=== PATIENT | female | born 1965 | race Caucasian/White ===

== ENCOUNTER → 2018-06-05 | Outpatient (CLI) | payer BC ==
--- NOTE | 2018-06-05 09:04 | US ---
EXAMINATION TYPE: US abdomen complete DATE OF EXAM: 06/05/2018 COMPARISON: NONE CLINICAL HISTORY: R10.9 Unspecified abdominal pain. RUQ pain for 2 months EXAM MEASUREMENTS: Liver Length: 14.5 cm Gallbladder Wall: 0.3 cm CBD: 0.3 cm Spleen: 9.9 cm Right Kidney: 11.4 x 3.6 x 3.7 cm Left Kidney: 10.8 x 4.9 x 4.2 cm Pancreas: Obscured by bowel gas Liver: Solitary hypoechoic hepatic lesion is seen within the right lobe measuring 2.2 x 2.2 x 2.0cm . There is peripheral vascular flow. Gallbladder: no evidence of stones Evidence for sonographic Fitzgerald's sign: no CBD: wnl Spleen: wnl Right Kidney: no evidence of hydronephrosis Left Kidney: no evidence of hydronephrosis Upper IVC: wnl Abd Aorta: wnl The intrahepatic portion of the IVC and proximal abdominal aorta are within normal limits. There is no evidence of cholelithiasis. Common bile duct is unremarkable. The visualized portions of the loredo creas are homogenous. The spleen is unremarkable. Kidneys are symmetric and free of hydronephrosis. No renal lesions are seen. IMPRESSION: Solitary hypoechoic hepatic lesion, incompletely characterized on this exam. Further eval uation with three-phase enhanced CT abdomen is recommended.
== END | disposition home or self-care (01) ==
LOC: RADUSWWP 07:33
PROVIDERS: ATTEND Family Medicine
DX: K76.89 Other specified diseases of liver (principal)
CPT/HCPCS: 76700

== ENCOUNTER → 2018-06-10 | Outpatient (CLI) | payer BC ==
--- NOTE | 2018-06-11 08:09 | CT ---
EXAMINATION TYPE: CT abdomen wo/w con DATE OF EXAM: 06/10/2018 COMPARISON: Ultrasound 06/05/2018 HISTORY: Abnormal US. CT DLP: 1500.3 mGycm CONTRAST: CT scan of the abdomen is performed with Oral Contrast and without and with IV Contrast, patient inj ected with 100 mL of Isovue M300. FINDINGS: LUNG BASES-: No visible nodule. No infiltrate. LIVER/GB: No calcified gallstones. Hyperattenuating lesion medial aspect right hepatic lobe measuri ng 2.6 x 1.8 cm which does fill in on delayed images and is felt to reflect hemangioma. No additional hepatic lesions identified at this time. Biliary tree is of normal caliber. PANCREAS: No inflammation. No distinct mass. SPLEEN: No splenic enlargement. No lesion seen. ADRENALS: No nodule. No thickening. KIDNEYS/BLADDER: No hydronephrosis. No nephrolithiasis. No distinct renal mass. Urinary bladder g rossly unremarkable. BOWEL: Normal appendix. Normal bowel caliber. No inflammation. LYMPH NODES: No greater than 1cm abdominal or pelvic lymph nodes are appreciated. AORTA: No significant abnormality. OSSEOUS STRUCTURES: No significant abnormality is seen. OTHER: No significant additional abnormality is seen. IMPRESSION: 1. Findings felt to reflect hepatic hemangioma.
== END | disposition home or self-care (01) ==
LOC: RADCTMAIN 16:22
PROVIDERS: ATTEND Family Medicine
DX: K76.9 Liver disease, unspecified (principal)
CPT/HCPCS: 74170; Q9967

== ENCOUNTER → 2018-08-04 | Outpatient (CLI) | payer BC ==
[2018-08-05 03:03] LABS: Rheumatoid Factor 7 IU/mL (0-15)
== END | disposition home or self-care (01) ==
LOC: LABWHC1 15:27
PROVIDERS: ATTEND Physician Assistant Medical
DX: M12.9 Arthropathy, unspecified (principal)
CPT/HCPCS: 36415; 85652; 86038; 86431

== ENCOUNTER 2018-09-01 08:50 | Day surgery (SDC) | payer BC ==
[2018-08-27 15:00] VITALS: BMI 30.5
[~2018-09-01 08:50] MED LIST: LACTATED RINGERS 1,000 ML IV SCH; LIDOCAINE 1% 20 ML VIAL (10MG/ML) FOR IV START INTRADERMA PRN
[2018-09-01 11:45] VITALS: RESP 18; TEMP 97.8
[2018-09-01] MEDS ORDERED: LACTATED RINGERS 1,000 ML IV ONE (11:45)
[2018-09-01] MEDS ORDERED: LIDOCAINE 1% INJ 10MG/ML (20 ML MDV) ONE (12:52)
[2018-09-01] MEDS ORDERED: MIDAZOLAM 2 MG/2 ML VIAL ONE (12:52)
[2018-09-01] MEDS ORDERED: PROPOFOL 10 MG/ML 20 ML VIAL IV ONE (12:52)
[2018-09-01] MEDS ORDERED: GLYCOPYRROLATE 0.2 MG/ML 2 ML VIAL ONE (12:52)
--- NOTE | 2018-09-01 13:39 | P.PCN ---
Date of Procedure: 09/01/18 Procedure(s) Performed: Procedure: 1. Esophagogastroduodenoscopy and biopsy. 2. Total colonoscopy. Preoperative diagnosis: Iron deficiency anemia. Postoperative diagnosis: 1. Small sliding hiatal hernia with no obvious esophagitis or complicated reflux disease. 2. Mild antral gastritis. 3. Normal colonoscopy. 4. Multiple biopsies obtained from the duodenum, antrum and esophagus. Preparation: HalfLytely prep. Sedation: Was provided by anesthesia. Brief clinical history: The patient is a 52-year-old female who was diagnosed with celiac disease around 2009. The patient has done well on a gluten-free diet until around 6 months ago. She been having bloating, indigestion as well as nocturnal reflux and intermittent diarrhea. In addition she is having iron deficiency anemia. Procedure: With the patient on her left lateral decubitus position and after informed consent and adequate sedation, I passed the Olympus-GIF 190 video upper endoscope through the cricopharyngeus down the esophagus. GE junction was around 34 cm from the incisors and there was a small sliding hiatal hernia but no obvious esophagitis or complicated reflux disease. The endoscope was then passed into the stomach which was insufflated with air and inspected in detail including the retroflex view in the cardia. There was some mottling and erythema in the antrum but no ulcers or erosions. Pyloric channel, duodenal bulb, post bulbar area and descending duodenum appeared within normal limits. Because of her symptoms, I obtained biopsies from the duodenum, antrum and esophagus then the endoscope was withdrawn and I proceeded with the colonoscopy. Perianal area did not show any fissures or fistulas. There were no masses felt on digital rectal examination. The Olympus CFH 190L video colonoscope was then inserted in the rectum in the usual fashion and advanced to the cecum. The mucosa appeared healthy. No polyps or tumors were seen or any obvious diverticular disease or any potential source of bleeding. I retroflexed the endoscope in the rectum before the endoscope was withdrawn. The patient tolerated the procedure well. Plan: The patient was reassured. Will await biopsy results and make further plans. I will keep you updated on her progress.
[2018-09-01 13:51] VITALS: BP 116/76; PULSE 91
== END 2018-09-01 13:34 | disposition home or self-care (01) ==
LOC: ORWHC2ENDO 08:50
DX: D50.9 Iron deficiency anemia, unspecified (principal); K44.9 Diaphragmatic hernia without obstruction or gangrene; K22.8 Other specified diseases of esophagus; K29.50 Unspecified chronic gastritis without bleeding; K90.0 Celiac disease; J45.909 Unspecified asthma, uncomplicated; E07.9 Disorder of thyroid, unspecified; Q07.00 Arnold-Chiari syndrome without spina bifida or hydrocephalus; Z79.1 Long term (current) use of non-steroidal anti-inflammatories (NSAID); Z79.890 Hormone replacement therapy; Z79.899 Other long term (current) drug therapy
CPT/HCPCS: 81025; 88305; 45378; 43239; J2250; J2001; J2704

== ENCOUNTER 2018-12-11 22:16 | Emergency (ER) | payer BC ==
[2018-12-11] MEDS ORDERED: ONDANSETRON 4 MG/2 ML VIAL IVP STA (23:06)
[2018-12-11] MEDS ORDERED: SODIUM CHLORIDE 0.9% 500 ML 500 ML IV STA (23:06)
[2018-12-11 23:19] LABS: Basophils % (A) 0 %; Eosinophils % (A) 0 %; HCT 46.3 % (34.0-46.0); HGB 15.6 gm/dL (11.4-16.0); Lymphocytes # (A) 0.4 k/uL (1.0-4.8); Lymphocytes % (A) 5 %; MCH 29.1 pg (25.0-35.0); MCHC 33.8 g/dL (31.0-37.0); MCV 86.2 fL (80.0-100.0); Mean Platelet Volume 7.1; Monocytes # (A) 0.4 k/uL (0-1.0); Monocytes % (A) 5 %; Neutrophils # (A) 6.3 k/uL (1.3-7.7); Neutrophils % (A) 88 %; Platelet Count 288 k/uL (150-450); RBC 5.37 m/uL (3.80-5.40); RDW 14.7 % (11.5-15.5); WBC 7.2 k/uL (3.8-10.6)
[2018-12-11 23:20] LABS: Appearance,Urine Clear (Clear); Bilirubin,Urine Negative (Negative); Blood,Urine Negative (Negative); Color,Urine Yellow; Glucose,Urine (UA) Negative (Negative); Hyaline Casts,Urine 1 /lpf (0-2); Ketones,Urine 3+ (Negative); Leukocyte Esterase,Urine Small (Negative); Mucus,Urine Few /hpf; Nitrite,Urine Negative (Negative); PH, Urine 5.5 (5.0-8.0); Protein,Urine Trace (Negative); RBC,Urine 2 /hpf (0-5); Squamous Epithelial Cell,Urine 4 /hpf (0-4); Urobilinogen,Urine <2.0 mg/dL (<2.0); WBC,Urine 4 /hpf (0-5)
[2018-12-11 23:28] LABS: ALT 29 U/L (9-52); AST 20 U/L (14-36); Albumin 4.7 g/dL (3.5-5.0); Alkaline Phosphatase 78 U/L (38-126); Amylase 52 U/L (30-110); Anion Gap 11 mmol/L; Blood Urea Nitrogen 21 mg/dL (7-17); Calcium 9.6 mg/dL (8.4-10.2); Carbon Dioxide 21 mmol/L (22-30); Chloride 105 mmol/L (98-107); Glucose 108 mg/dL (74-99); Lipase 31 U/L (23-300); Potassium 3.8 mmol/L (3.5-5.1); Sodium 137 mmol/L (137-145); Total Bilirubin 0.7 mg/dL (0.2-1.3); Total Protein 8.1 g/dL (6.3-8.2)
[2018-12-11] MEDS ORDERED: SODIUM CHLORIDE 0.9% 1,000 ML IV ONE (23:29)
--- NOTE | 2018-12-11 23:36 | ED ---
Nausea/Vomiting/Diarrhea HPI - General Chief complaint: Nausea/Vomiting/Diarrhea Stated complaint: Nausea,diarrhea Time Seen by Provider: 12/11/18 23:02 Source: patient, family Mode of arrival: ambulatory Limitations: no limitations - History of Present Illness Initial comments: This patient is a 53-year-old woman who presents with complaint of not feeling well due to having multiple rounds of diarrhea. She states that her symptoms started around 5 AM. She has been having greater than 10 episodes watery diarrhea. She has not noted blood or dark tarry stool. The patient has had some associated nausea but no vomiting. There is no abdominal pain. Patient states she is started feels somewhat dehydrated. MD complaint: nausea, diarrhea Onset/Timin -: hour(s) Description of Diarrhea: water Associated Abdominal Pain: No Improves with: none Worsens with: none - Related Data Home Medications Medication Instructions Recorded Confirmed Diazepam [Valium] 5 mg PO HS PRN 08/27/18 12/11/18 Levothyroxine Sodium [Synthroid] 137 mcg PO HS 08/27/18 12/11/18 Montelukast [Singulair] 10 mg PO HS 08/27/18 12/11/18 Sertraline [Zoloft] 50 mg PO HS 08/27/18 12/11/18 Topiramate [Topamax] 25 mg PO HS 08/27/18 12/11/18 Acetaminophen Tab [Tylenol Tab] 500 mg PO Q6H PRN 12/11/18 12/11/18 Albuterol Nebulized [Ventolin 2.5 mg INHALATION RT-Q6H PRN 12/11/18 12/11/18 Nebulized] Lansoprazole 15 mg PO DAILY 12/11/18 12/11/18 Nausean Otc 1 tab PO DAILY PRN 12/11/18 12/11/18 Omalizumab [Xolair] 75 mg SQ Q30D 12/11/18 12/11/18 Previous Rx's Medication Instructions Recorded Ondansetron Odt [Zofran ODT] 4 mg PO Q8HR PRN #10 tab 12/12/18 Allergies Allergy/AdvReac Type Severity Reaction Status Date / Time No Known Allergies Allergy Verified 12/11/18 22:49 Review of Systems ROS Statement: Those systems with pertinent positive or pertinent negative responses have been documented in the HPI. ROS Other: All systems not noted in ROS Statement are negative. Constitutional: Denies: fever, chills Respiratory: Denies: cough, dyspnea Cardiovascular: Denies: chest pain, syncope Gastrointestinal: Reports: nausea, diarrhea. Denies: abdominal pain, vomiting, constipation, melena, hematochezia Genitourinary: Denies: dysuria Musculoskeletal: Denies: back pain Skin: Denies: rash Neurological: Denies: headache, weakness, numbness Past Medical History Past Medical History: Asthma, Thyroid Disorder Additional Past Medical History / Comment(s): ANEMIA. CELIAC. 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 CHIARI MALFORMATION SX WITH BOVINE PATCH. COLONOSCOPY AND EGD'S Past Anesthesia/Blood Transfusion Reactions: No Reported Reaction Past Psychological History: Anxiety, Depression Smoking Status: Never smoker Past Alcohol Use History: None Reported Past Drug Use History: None Reported - Past Family History Mother Family Medical History: No Reported History General Exam Limitations: no limitations General appearance: alert, in no apparent distress Head exam: Present: atraumatic, normocephalic Eye exam: Present: normal appearance. Absent: scleral icterus, conjunctival injection ENT exam: Present: mucous membranes dry Respiratory exam: Present: normal lung sounds bilaterally. Absent: respiratory distress, wheezes, rales, rhonchi, stridor Cardiovascular Exam: Present: normal rhythm, tachycardia (Rate approximately 116 at my exam), normal heart sounds. Absent: systolic murmur, diastolic murmur, rubs, gallop GI/Abdominal exam: Present: soft, normal bowel sounds. Absent: distended, tenderness, guarding, rebound, rigid, mass, pulsatile mass, hernia Extremities exam: Present: normal inspection, normal capillary refill. Absent: pedal edema, calf tenderness Neurological exam: Present: alert Skin exam: Present: warm, dry, intact, normal color. Absent: rash Course Vital Signs 12/11/18 12/12/18 12/12/18 22:36 00:50 01:10 Temperature 99.2 F Pulse Rate 130 H 100 Respiratory 20 19 Rate Blood Pressure 115/75 138/79 137/72 O2 Sat by Pulse 95 100 97 Oximetry 12/12/18 12/12/18 12/12/18 01:40 02:10 02:40 Temperature Pulse Rate 100 100 Respiratory 16 16 Rate Blood Pressure 130/74 117/68 120/69 O2 Sat by Pulse 97 95 98 Oximetry 12/12/18 03:10 Temperature Pulse Rate 100 Respiratory 16 Rate Blood Pressure 118/67 O2 Sat by Pulse 98 Oximetry Medical Decision Making - Lab Data Result diagrams: 12/11/18 22:47 12/11/18 22:47 Lab Results 12/11/18 12/11/18 12/11/18 Range/Units 22:47 22:47 22:47 WBC 7.2 (3.8-10.6) k/uL RBC 5.37 (3.80-5.40) m/uL Hgb 15.6 (11.4-16.0) gm/dL Hct 46.3 H (34.0-46.0) % MCV 86.2 (80.0-100.0) fL MCH 29.1 (25.0-35.0) pg MCHC 33.8 (31.0-37.0) g/dL RDW 14.7 (11.5-15.5) % Plt Count 288 (150-450) k/uL Neutrophils % 88 % Lymphocytes % 5 % Monocytes % 5 % Eosinophils % 0 % Basophils % 0 % Neutrophils # 6.3 (1.3-7.7) k/uL Lymphocytes # 0.4 L (1.0-4.8) k/uL Monocytes # 0.4 (0-1.0) k/uL Eosinophils # 0.0 (0-0.7) k/uL Basophils # 0.0 (0-0.2) k/uL Sodium 137 (137-145) mmol/L Potassium 3.8 (3.5-5.1) mmol/L Chloride 105 (98-107) mmol/L Carbon Dioxide 21 L (22-30) mmol/L Anion Gap 11 mmol/L BUN 21 H (7-17) mg/dL Creatinine 0.68 (0.52-1.04) mg/dL Est GFR (CKD-EPI)AfAm >90 (>60 ml/min/1.73 sqM) Est GFR (CKD-EPI)NonAf >90 (>60 ml/min/1.73 sqM) Glucose 108 H (74-99) mg/dL Calcium 9.6 (8.4-10.2) mg/dL Total Bilirubin 0.7 (0.2-1.3) mg/dL AST 20 (14-36) U/L ALT 29 (9-52) U/L Alkaline Phosphatase 78 (38-126) U/L Total Protein 8.1 (6.3-8.2) g/dL Albumin 4.7 (3.5-5.0) g/dL Amylase 52 (30-110) U/L Lipase 31 (23-300) U/L Urine Color Yellow Urine Appearance Clear (Clear) Urine pH 5.5 (5.0-8.0) Ur Specific [place] 1.030 (1.001-1.035) Urine Protein Trace H (Negative) Urine Glucose (UA) Negative (Negative) Urine Ketones 3+ H (Negative) Urine Blood Negative (Negative) Urine Nitrite Negative (Negative) Urine Bilirubin Negative (Negative) Urine Urobilinogen <2.0 (<2.0) mg/dL Ur Leukocyte Esterase Small H (Negative) Urine RBC 2 (0-5) /hpf Urine WBC 4 (0-5) /hpf Ur Squamous Epith Cells 4 (0-4) /hpf Hyaline Casts 1 (0-2) /lpf Urine Mucus Few H (None) /hpf Disposition Clinical Impression: Diarrhea Disposition: HOME SELF-CARE Condition: Good Instructions (If sedation given, give patient instructions): Acute Diarrhea (ED) Prescriptions: Ondansetron Odt [Zofran ODT] 4 mg PO Q8HR PRN #10 tab PRN Reason: Nausea Is patient prescribed a controlled substance at d/c from ED?: No Referrals: Karin Madrid DO [Primary Care Provider] - 1-2 days
[2018-12-12] MEDS ORDERED: MORPHINE SULFATE 4 MG/ML SYRINGE IV STA (00:34)
[2018-12-12] MEDS ORDERED: DEXTROSE 5%-0.45% NACL 1,000 ML IV ONE (00:35)
[2018-12-12 03:21] VITALS: PULSE 100
[2018-12-12] MEDS ORDERED: PROMETHAZINE INJ 25 MG in SODIUM CHLORIDE 0.9% 50 ML IVPB STA (04:22)
[2018-12-12 05:26] VITALS: BP 115/71; RESP 17; TEMP 98.1
== END 2018-12-12 05:14 | disposition home or self-care (01) ==
LOC: EC 22:16
DX: R19.7 Diarrhea, unspecified (principal); R00.0 Tachycardia, unspecified; R11.0 Nausea; J45.909 Unspecified asthma, uncomplicated; E07.9 Disorder of thyroid, unspecified; F32.9 Major depressive disorder, single episode, unspecified; F41.9 Anxiety disorder, unspecified; Z79.890 Hormone replacement therapy; Z79.899 Other long term (current) drug therapy; Z87.728 Personal history of other specified (corrected) congenital malformations of nervous system and sense organs; Z87.19 Personal history of other diseases of the digestive system
CPT/HCPCS: 99284; 96374; 96375 ×2; 96361 ×3; 36415; 80053; 82150; 83690; 85025; 81001; J2270; J2550; J2405

== ENCOUNTER → 2019-01-15 | Outpatient (CLI) | payer BC ==
--- NOTE | 2019-01-19 10:06 | MM ---
Reason for exam: screening (asymptomatic). Last mammogram was performed 1 year and 5 months ago. History: Family history of breast cancer in maternal grandmother, breast cancer in paternal grandmother, and breast cancer in maternal aunt. Physical Findings: A clinical breast exam by your physician is recommended on an annual basis and results should be correlated with mammographic findings. MG 3D Screening Mammo W/Cad Bilateral CC and MLO view(s) were taken. Prior study comparison: August 06, 2017, mammogram. The breast tissue is heterogeneously dense. This may lower the sensitivity of mammography. There are faint punctate bilateral calcifications. No suspicious abnormality. No significant changes when compared with prior studies. ASSESSMENT: Benign, BI-RAD 2 RECOMMENDATION: Routine screening mammogram of both breasts in 1 year.
== END | disposition home or self-care (01) ==
LOC: RADMAMWWP 15:25
PROVIDERS: ATTEND Family Medicine
DX: Z12.31 Encounter for screening mammogram for malignant neoplasm of breast (principal)
CPT/HCPCS: 77063; 77067

== ENCOUNTER → 2020-04-18 | Outpatient (CLI) | payer BC ==
--- NOTE | 2020-04-19 12:00 | MM ---
Reason for exam: screening (asymptomatic). Last mammogram was performed 1 year and 3 months ago. History: Family history of breast cancer in maternal grandmother, breast cancer in paternal grandmother, and breast cancer in maternal aunt. Physical Findings: A clinical breast exam by your physician is recommended on an annual basis and results should be correlated with mammographic findings. MG 3D Screening Mammo W/Cad Bilateral CC and MLO view(s) were taken. Prior study comparison: January 15, 2019, bilateral MG 3d screening mammo w/cad. August 06, 2017, mammogram. The breast tissue is heterogeneously dense. This may lower the sensitivity of mammography. No significant changes when compared with prior studies. ASSESSMENT: Benign, BI-RAD 2 RECOMMENDATION: Routine screening mammogram of both breasts in 1 year.
== END | disposition home or self-care (01) ==
LOC: RADMAMWWP 16:27
PROVIDERS: ATTEND Family Medicine
DX: Z12.31 Encounter for screening mammogram for malignant neoplasm of breast (principal)
CPT/HCPCS: 77063; 77067

== ENCOUNTER 2020-06-10 02:34 | Observation (INO) | payer BC ==
[2020-06-10] MEDS ORDERED: methylPREDNISolone SOD SUCCI 125 MG/2 ML VIAL IV STA (02:38)
[2020-06-10] MEDS ORDERED: SODIUM CHLORIDE 0.9% 1,000 ML IV STA ×3 (02:38→04:11)
[2020-06-10] MEDS ORDERED: IPRATROPIUM-ALBUTEROL 3 ML NEB INHALATION STA (02:38)
--- NOTE | 2020-06-10 03:02 | ED ---
SOB HPI - General Stated Complaint: SOB Source: patient, RN notes reviewed, old records reviewed Mode of arrival: ambulatory Limitations: no limitations - History of Present Illness Initial Comments: this is a 64-year-old female DF for evaluation no underlying history of asthma. Patient states she had use rescue inhaler twice today does not normal for had difficulty sleeping tonight she is appeared camping no known significant sick contacts patient does work in hospital.patient denying any chest pain or fevers but states her heart rate is elevated she feels significantly short of breath especially with exertion MD Complaint: shortness of breath, cough, "asthma attack", anxiety -: hour(s) Severity: moderate Severity scale (1-10): 7 Quality: aching Consistency: constant Improves With: rest, bronchodilators, medication Worsens With: exertion, movement Known History Of: asthma Context: recent URI Associated Symptoms: cough, sputum production, orthopnea, palpitations Treatments Prior to Arrival: none - Related Data Home Medications Medication Instructions Recorded Confirmed Levothyroxine Sodium [Synthroid] 137 mcg PO HS 08/27/18 12/11/18 Montelukast [Singulair] 10 mg PO HS 08/27/18 12/11/18 Sertraline [Zoloft] 50 mg PO HS 08/27/18 12/11/18 Topiramate [Topamax] 25 mg PO HS 08/27/18 12/11/18 diazePAM [Valium] 5 mg PO HS PRN 08/27/18 12/11/18 Acetaminophen Tab [Tylenol Tab] 500 mg PO Q6H PRN 12/11/18 12/11/18 Albuterol Nebulized [Ventolin 2.5 mg INHALATION RT-Q6H PRN 12/11/18 12/11/18 Nebulized] Lansoprazole 15 mg PO DAILY 12/11/18 12/11/18 Nausean Otc 1 tab PO DAILY PRN 12/11/18 12/11/18 Omalizumab [Xolair] 75 mg SQ Q30D 12/11/18 12/11/18 Previous Rx's Medication Instructions Recorded Ondansetron Odt [Zofran ODT] 4 mg PO Q8HR PRN #10 tab 12/12/18 Allergies Allergy/AdvReac Type Severity Reaction Status Date / Time No Known Allergies Allergy Verified 10/24/20 02:46 Review of Systems ROS Statement: Those systems with pertinent positive or pertinent negative responses have been documented in the HPI. ROS Other: All systems not noted in ROS Statement are negative. Past Medical History Past Medical History: Asthma, Thyroid Disorder Additional Past Medical History / Comment(s): ANEMIA. CELIAC. 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 CHIARI MALFORMATION SX WITH BOVINE PATCH. COLONOSCOPY AND EGD'S Past Anesthesia/Blood Transfusion Reactions: No Reported Reaction Past Psychological History: Anxiety, Depression Smoking Status: Never smoker Past Alcohol Use History: Rare Past Drug Use History: None Reported - Past Family History Mother Family Medical History: No Reported History General Exam Limitations: no limitations General appearance: alert, in no apparent distress, anxious Head exam: Present: atraumatic, normocephalic, normal inspection Eye exam: Present: normal appearance, PERRL, EOMI. Absent: scleral icterus, conjunctival injection, periorbital swelling ENT exam: Present: normal exam, mucous membranes moist Neck exam: Present: normal inspection. Absent: tenderness, meningismus, lymphadenopathy Respiratory exam: Present: respiratory distress, wheezes, accessory muscle use, decreased breath sounds, prolonged expiratory. Absent: rales, rhonchi, stridor Cardiovascular Exam: Present: normal rhythm, tachycardia, normal heart sounds. Absent: systolic murmur, diastolic murmur, rubs, gallop, clicks GI/Abdominal exam: Present: soft, normal bowel sounds. Absent: distended, tenderness, guarding, rebound, rigid Extremities exam: Present: normal inspection, full ROM, normal capillary refill. Absent: tenderness, pedal edema, joint swelling, calf tenderness Back exam: Present: normal inspection Neurological exam: Present: alert, oriented X3, CN II-XII intact Psychiatric exam: Present: normal affect, normal mood Skin exam: Present: warm, dry, intact, normal color. Absent: rash Course Vital Signs 06/10/20 06/10/20 06/10/20 02:40 03:09 03:18 Temperature 97.8 F Pulse Rate 117 H 117 H 120 H Respiratory 22 Rate Blood Pressure 164/90 O2 Sat by Pulse 99 Oximetry 06/10/20 06/10/20 04:16 05:20 Temperature Pulse Rate 117 H 110 H Respiratory 20 20 Rate Blood Pressure 138/75 111/68 O2 Sat by Pulse 97 97 Oximetry - Reevaluation(s) Reevaluation #1: 06/10/20 03:01 medical record is reviewed Reevaluation #2: 06/10/20 03:01 patient still sob, no sick contacts Reevaluation #3: 06/10/20 04:32 patient is increase in her jitteriness, medication reaction, tachycardia Reevaluation #4: 06/10/20 05:37 heart rate remains elevated sometime in the 140s here in the ER, spoke with patient regarding findings, per for observation Medical Decision Making - Medical Decision Making 52 female with new medication induced tachycardia and bronchospasm shortness of breath but here in the ER no acute cause found. Patient be admitted for cardiology to observe secondary to tachycardia - Lab Data Result diagrams: 06/10/20 03:03 06/10/20 03:02 Lab Results 06/10/20 06/10/20 06/10/20 Range/Units 03:02 03:03 03:03 WBC 5.8 (3.8-10.6) k/uL RBC 4.98 (3.80-5.40) m/uL Hgb 13.3 (11.4-16.0) gm/dL Hct 41.7 (34.0-46.0) % MCV 83.7 (80.0-100.0) fL MCH 26.7 (25.0-35.0) pg MCHC 31.9 (31.0-37.0) g/dL RDW 14.5 (11.5-15.5) % Plt Count 313 (150-450) k/uL Neutrophils % 56 % Lymphocytes % 28 % Monocytes % 8 % Eosinophils % 5 % Basophils % 1 % Neutrophils # 3.3 (1.3-7.7) k/uL Lymphocytes # 1.6 (1.0-4.8) k/uL Monocytes # 0.4 (0-1.0) k/uL Eosinophils # 0.3 (0-0.7) k/uL Basophils # 0.1 (0-0.2) k/uL PT 9.9 (9.0-12.0) sec INR 0.9 (<1.2) APTT 26.8 (22.0-30.0) sec Sodium 140 (137-145) mmol/L Potassium 3.6 (3.5-5.1) mmol/L Chloride 106 (98-107) mmol/L Carbon Dioxide 24 (22-30) mmol/L Anion Gap 10 mmol/L BUN 20 H (7-17) mg/dL Creatinine 0.81 (0.52-1.04) mg/dL Est GFR (CKD-EPI)AfAm >90 (>60 ml/min/1.73 sqM) Est GFR (CKD-EPI)NonAf 84 (>60 ml/min/1.73 sqM) Glucose 125 H (74-99) mg/dL Calcium 9.6 (8.4-10.2) mg/dL Magnesium 2.1 (1.6-2.3) mg/dL Total Bilirubin 0.3 (0.2-1.3) mg/dL AST 25 (14-36) U/L ALT 24 (4-34) U/L Alkaline Phosphatase 81 (38-126) U/L Lactate Dehydrogenase 338 (313-618) U/L Troponin I (0.000-0.034) ng/mL C-Reactive Protein 5.9 (<10.0) mg/L NT-Pro-B Natriuret Pep pg/mL Total Protein 7.4 (6.3-8.2) g/dL Albumin 4.3 (3.5-5.0) g/dL 06/10/20 06/10/20 Range/Units 03:03 03:03 WBC (3.8-10.6) k/uL RBC (3.80-5.40) m/uL Hgb (11.4-16.0) gm/dL Hct (34.0-46.0) % MCV (80.0-100.0) fL MCH (25.0-35.0) pg MCHC (31.0-37.0) g/dL RDW (11.5-15.5) % Plt Count (150-450) k/uL Neutrophils % % Lymphocytes % % Monocytes % % Eosinophils % % Basophils % % Neutrophils # (1.3-7.7) k/uL Lymphocytes # (1.0-4.8) k/uL Monocytes # (0-1.0) k/uL Eosinophils # (0-0.7) k/uL Basophils # (0-0.2) k/uL PT (9.0-12.0) sec INR (<1.2) APTT (22.0-30.0) sec Sodium (137-145) mmol/L Potassium (3.5-5.1) mmol/L Chloride (98-107) mmol/L Carbon Dioxide (22-30) mmol/L Anion Gap mmol/L BUN (7-17) mg/dL Creatinine (0.52-1.04) mg/dL Est GFR (CKD-EPI)AfAm (>60 ml/min/1.73 sqM) Est GFR (CKD-EPI)NonAf (>60 ml/min/1.73 sqM) Glucose (74-99) mg/dL Calcium (8.4-10.2) mg/dL Magnesium (1.6-2.3) mg/dL Total Bilirubin (0.2-1.3) mg/dL AST (14-36) U/L ALT (4-34) U/L Alkaline Phosphatase (38-126) U/L Lactate Dehydrogenase (313-618) U/L Troponin I <0.012 (0.000-0.034) ng/mL C-Reactive Protein (<10.0) mg/L NT-Pro-B Natriuret Pep 32 pg/mL Total Protein (6.3-8.2) g/dL Albumin (3.5-5.0) g/dL - EKG Data -: EKG Interpreted by Me (EKG sinus tachycardia rate of 130 GA 138 QRS 88 QTc 465) - Radiology Data Radiology results: report reviewed (chest x-ray and CT chest negative for acute disease), image reviewed Disposition Clinical Impression: Medication reaction, Tachycardia, Bronchospasm Disposition: ADMITTED IP TO THIS [facility] Condition: Good Instructions (If sedation given, give patient instructions): Bronchospasm (ED) Referrals: Karin Madrid DO [Primary Care Provider] - 1-2 days
[2020-06-10 03:21] LABS: Basophils # (A) 0.1 k/uL (0-0.2); Basophils % (A) 1 %; Eosinophils # (A) 0.3 k/uL (0-0.7); Eosinophils % (A) 5 %; HCT 41.7 % (34.0-46.0); HGB 13.3 gm/dL (11.4-16.0); Lymphocytes # (A) 1.6 k/uL (1.0-4.8); Lymphocytes % (A) 28 %; MCH 26.7 pg (25.0-35.0); MCHC 31.9 g/dL (31.0-37.0); MCV 83.7 fL (80.0-100.0); Mean Platelet Volume 7.1; Monocytes # (A) 0.4 k/uL (0-1.0); Monocytes % (A) 8 %; Neutrophils # (A) 3.3 k/uL (1.3-7.7); Neutrophils % (A) 56 %; Platelet Count 313 k/uL (150-450); RBC 4.98 m/uL (3.80-5.40); RDW 14.5 % (11.5-15.5); WBC 5.8 k/uL (3.8-10.6)
[2020-06-10 03:29] LABS: INR 0.9 (<1.2); Partial Thromboplastin Time 26.8 sec (22.0-30.0); Prothrombin Time 9.9 sec (9.0-12.0)
[2020-06-10 03:32] LABS: ALT 24 U/L (4-34); AST 25 U/L (14-36); African American GFR (CKD) >90 (>60 ml/min/1.73 sqM); Albumin 4.3 g/dL (3.5-5.0); Alkaline Phosphatase 81 U/L (38-126); Anion Gap 10 mmol/L; Blood Urea Nitrogen 20 mg/dL (7-17); C Reactive Protein 5.9 mg/L (<10.0); Calcium 9.6 mg/dL (8.4-10.2); Carbon Dioxide 24 mmol/L (22-30); Chloride 106 mmol/L (98-107); Glucose 125 mg/dL (74-99); LDH 338 U/L (313-618); Magnesium 2.1 mg/dL (1.6-2.3); Non-African American GFR(CKD) 84 (>60 ml/min/1.73 sqM); Potassium 3.6 mmol/L (3.5-5.1); Sodium 140 mmol/L (137-145); Total Bilirubin 0.3 mg/dL (0.2-1.3); Total Protein 7.4 g/dL (6.3-8.2)
[2020-06-10] MEDS ORDERED: LORazepam 2 MG/ML INJ IV STA (04:11)
--- NOTE | 2020-06-10 04:15 | XR ---
EXAMINATION TYPE: XR chest 2V DATE OF EXAM: 06/10/2020 COMPARISON: NONE HISTORY: Difficulty breathing TECHNIQUE: 2 views FINDINGS: There is no heart failure nor confluent pneumonic infiltrate. Costophrenic angles are clear . Bony thorax is intact. IMPRESSION: Normal chest
--- NOTE | 2020-06-10 04:24 | CT ---
EXAMINATION TYPE: CT angio chest DATE OF EXAM: 06/10/2020 COMPARISON: None HISTORY: pe CT DLP: 414 mGycm Automated exposure control for dose reduction was used. CONTRAST: Performed with IV Contrast, patient injected with 70 mL of Isovue 370. There are 3-D post processed images. FINDINGS: Lungs are clear of infiltrate. There is no evidence of a pulmonary mass. There are no hilar masses. T here is no mediastinal adenopathy. Thoracic aorta appears normal. There is no aneurysm or dissection. Heart size is normal. There is normal contrast opacification of the pulmonary arteries. There are no filling defects. Bony thorax is intact. Upper abdominal soft tissues are intact. IMPRESSION: Negative exam. No evidence of pulmonary embolism.
[2020-06-10] MEDS ORDERED: NITROGLYCERIN SL TABS 0.4 MG TAB SUBLINGUAL PRN (05:36)
[2020-06-10 06:25] LABS: T4, Free (Free Thyroxine) 1.64 ng/dL (0.78-2.19)
[2020-06-10] MEDS ORDERED: POTASSIUM CHLORIDE ER 20 MEQ TAB.ER PO STA (08:47)
[2020-06-10] MEDS: SODIUM CHLORIDE 0.9% 1,000 ML IV SCH ×3 (08:48→20:53)
[2020-06-10] MEDS: METOPROLOL TARTRATE 25 MG TAB PO SCH ×2 (08:54→20:49)
--- NOTE | 2020-06-10 10:03 | CONS ---
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 She has history of allergic bronchitis, uses Xolair. She also has history of hypothyroidism and recently was diagnosed with psoriatic arthritis and has been started on a new medication called Otezla. She came into the hospital mainly because she was getting ready to go camping with her son and started feeling that she had difficulty taking a full breath. She felt somewhat a sensation of fast heartbeat. With these symptoms, she came to the hospital. She used her rescue inhaler twice and had some wheezing as well. After she arrived, she was in sinus tachycardia. I was asked to see her regarding sinus tachycardia. She thought she had an episode of anxiety, shortness of breath and asthma attack. However, she remains somewhat tachycardic. Initial heart rate was 130, heart rate at the time of my evaluation is about 110 and appears to be in sinus. She is resting comfortably without symptoms. Her shortness of breath episodes seem to have resolved. Her initial troponin is normal. EKG revealed a sinus mechanism with nonspecific ST changes. PAST MEDICAL HISTORY: 1. Hypothyroidism. 2. Allergic bronchitis. 3. History of celiac disease. 4. History of psoriatic arthritis. MEDICATIONS: At home include: Synthroid 137 mcg. Singulair 10 mg daily. Zoloft 50 mg daily. Topamax 25 mg daily. Valium. She takes Xolair injections. Also takes Otezla that was started recently. ALLERGIES: None. This patient was last seen by me in 2016 and she came with atypical chest pain, had a negative Lexiscan stress test and also had a negative stress echo. She walked for 8 minutes at a heart rate of 137 beats per minute. Her echocardiogram from 2016 also was unremarkable and ejection fraction was 55%. She had hyperlipidemia at that time. PHYSICAL EXAMINATION: Blood pressure is 128/70, pulse rate is about 108. HEENT unremarkable. Fundus was not examined by me. Neck is supple. No JVD. I do not hear a carotid bruit. There is no thyromegaly. Heart exam reveals S1, S2 heard normally. No rub, murmur or gallop. Lungs are clear. Abdomen is soft, nontender. Lower extremities reveal normal pulses. No edema. Central nervous system is normal. EKG revealed sinus tachycardia, nonspecific ST-T changes. LABORATORY DATA: Laboratory data revealed that initial troponin is unremarkable. TSH is somewhat low at 0.032. IMPRESSION: 1. Sinus tachycardia. 2. Probable exacerbation of bronchial asthma, but appears to have resolved now. 3. Atypical chest pain. 4. History of hypothyroidism, probably over supplemented. RECOMMENDATIONS: I am recommending that we decrease the Synthroid from 137-112 mcg daily, I will start her on metoprolol tartrate 25 mg b.i.d. Check an additional troponin and obtain echocardiogram. If these tests are normal, she can be discharged and we can perform a stress test as an outpatient. Discussed my thoughts in detail with the patient. She also had a CT angiogram that was completely normal. MMODL / IJN: [id number] /
--- NOTE | 2020-06-10 11:26 | P.CNPUL ---
History of Present Illness Consult date: 06/10/20 Reason for consult: dyspnea, cough, chest pain, asthma Chief complaint: Shortness and cough for one day duration History of present illness: This is a 64-year-old male came into the hospital with the ongoing shortness of breath and cough is started 1 days ago, patient was noted to be significantly difficult to tachycardic, she has a history of ALLERGIC asthma has been on Xolair, also has a history of psoriatic arthritis she underwent a chest x-ray as well as CTA to rule out PE negative for pulmonary embolism,, no active infiltrate or masslike lesion has been noted her covert testing is pending, she has been evaluated by cardiovascular services echocardiogram is pending, EKG changes unremarkable Review of Systems All systems: negative Past Medical History Past Medical History: Asthma, Thyroid Disorder Additional Past Medical History / Comment(s): hx of anemia prior to being diagnosed with celiac 10 years ago, Julia autoimmune, CELIAC, 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 Smoking Status: Never smoker Past Alcohol Use History: Rare Past Drug Use History: None Reported - Past Family History Mother Family Medical History: No Reported History Medications and Allergies Home Medications Medication Instructions Recorded Confirmed Type Levothyroxine Sodium [Synthroid] 137 mcg PO DAILY 08/27/18 06/10/20 History Montelukast [Singulair] 10 mg PO HS 08/27/18 06/10/20 History Topiramate [Topamax] 25 mg PO HS 08/27/18 06/10/20 History Ascorbic Acid [Vitamin C] 1,000 mg PO DAILY 06/10/20 06/10/20 History Atorvastatin [Lipitor] 20 mg PO HS 06/10/20 06/10/20 History Cholecalciferol [Vitamin D3 (25 1,000 unit PO DAILY 06/10/20 06/10/20 History Mcg = 1000 Iu)] Melatonin 10 mg PO HS PRN 06/10/20 06/10/20 History Omeprazole Magnesium [PriLOSEC OTC] 20 mg PO DAILY 06/10/20 06/10/20 History Sertraline HCl [Zoloft] 100 mg PO HS 06/10/20 06/10/20 History Allergies Allergy/AdvReac Type Severity Reaction Status Date / Time No Known Allergies Allergy Verified 06/10/20 09:25 Physical Exam Vitals: Vital Signs Temp Pulse Pulse Resp BP BP Pulse Ox 06/10/20 09:07 95 06/10/20 08:35 97.8 F 105 H 16 137/78 95 06/10/20 06:49 98.9 F 113 H 20 127/64 96 06/10/20 05:20 110 H 20 111/68 97 06/10/20 04:16 117 H 20 138/75 97 06/10/20 03:18 120 H 06/10/20 03:09 117 H 06/10/20 02:40 97.8 F 117 H 22 164/90 99 Intake and Output 06/09/20 06/10/20 06/10/20 22:59 06:59 14:59 Other: Voiding Method Toilet # Voids 1 Weight 80.286 kg - Constitutional General appearance: average body habitus, cooperative, disheveled - EENT Eyes: PERRLA Ears: bilateral: normal - Neck Neck: normal ROM Carotids: bilateral: upstroke normal - Respiratory Respiratory: bilateral: CTA - Cardiovascular Rhythm: regular Heart sounds: normal: S1, S2 - Gastrointestinal General gastrointestinal: normal bowel sounds - Musculoskeletal Musculoskeletal: gait normal, strength equal bilaterally - Psychiatric Psychiatric: A&O x's 3, appropriate affect, intact judgment & insight Results - Laboratory Findings CBC and BMP: 06/10/20 03:03 06/10/20 03:02 PT/INR, D-dimer PT 9.9 sec (9.0-12.0) 06/10/20 03:03 INR 0.9 (<1.2) 06/10/20 03:03 Abnormal lab findings: Abnormal Labs 06/10/20 06/10/20 03:02 03:02 BUN 20 H Glucose 125 H TSH 0.032 L - Diagnostic Findings Chest x-ray: report reviewed, image reviewed CT scan - chest: report reviewed, image reviewed (Finding as noted above) Assessment and Plan Assessment: Shortness of breath patient is evaluated for cold with 19 pneumonia infection results are pending ALLERGIC asthma, in remission Sinus tachycardia cardiovascular workup is in progress History of psoriatic arthritis Hypothyroidism Plan: Follow-up on covid 19 testing Bronchodilators as needed Follow-up on workup and evaluation by cardiovascular services Time with Patient: Greater than 30
[2020-06-10 13:11] LABS: Ferritin 6.8 ng/mL (10.0-291.0)
[2020-06-10] MEDS ORDERED: MELATONIN 10 MG PO PRN (13:42)
--- NOTE | 2020-06-10 13:47 | P.HPIM ---
History of Present Illness Patient is a pleasant 64-year-old male came into the hospital with the ongoing shortness of breath and cough is started 1 days ago, patient was noted to be significantly difficult to tachycardic, she has a history of ALLERGIC asthma has been on Xolair, also has a history of psoriatic arthritis she underwent a chest x-ray as well as CTA to rule out PE negative for pulmonary embolism,, no active infiltrate Covid testing is pending, she has been evaluated by cardiovascular services echocardiogram is pending, EKG changes unremarkable . Patient is found to have elevated TSH and normal T4. Dose of levothyroxine was decreased. P atient will be monitored overnight for any heart rhythm abnormalities. Patient doesn't have any wheezing at this time. Patient was also started on beta catalino at this time. Patient also complaining of some orthopnea and denied any paroxysmal nocturnal dyspnea no evidence of CHF at this time. Review of Systems REVIEW OF SYSTEMS: CONSTITUTIONAL: No fever, no malaise, no fatigue. HEENT: No recent visual problems or hearing problems. Denied any sore throat. CARDIOVASCULAR: No chest pain,PND, no palpitations, no syncope. PULMONARY: no cough, no hemoptysis. GASTROINTESTINAL: No diarrhea, no nausea, no vomiting, no abdominal pain. NEUROLOGICAL: No headaches, no weakness, no numbness. HEMATOLOGICAL: Denies any bleeding or petechiae. GENITOURINARY: Denies any burning micturition, frequency, or urgency. MUSCULOSKELETAL/RHEUMATOLOGICAL: Denies any joint pain, swelling, or any muscle pain. ENDOCRINE: Denies any polyuria or polydipsia. The rest of the 14-point review of systems is negative. 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 Smoking Status: Never smoker Past Alcohol Use History: Rare Past Drug Use History: None Reported - Past Family History Mother Family Medical History: No Reported History Medications and Allergies Home Medications Medication Instructions Recorded Confirmed Type Levothyroxine Sodium [Synthroid] 137 mcg PO DAILY 08/27/18 06/10/20 History Montelukast [Singulair] 10 mg PO HS 08/27/18 06/10/20 History Topiramate [Topamax] 25 mg PO HS 08/27/18 06/10/20 History Ascorbic Acid [Vitamin C] 1,000 mg PO DAILY 06/10/20 06/10/20 History Atorvastatin [Lipitor] 20 mg PO HS 06/10/20 06/10/20 History Cholecalciferol [Vitamin D3 (25 1,000 unit PO DAILY 06/10/20 06/10/20 History Mcg = 1000 Iu)] Melatonin 10 mg PO HS PRN 06/10/20 06/10/20 History Omeprazole Magnesium [PriLOSEC OTC] 20 mg PO DAILY 06/10/20 06/10/20 History Sertraline HCl [Zoloft] 100 mg PO HS 06/10/20 06/10/20 History Allergies Allergy/AdvReac Type Severity Reaction Status Date / Time No Known Allergies Allergy Verified 06/10/20 09:25 Physical Exam Vitals: Vital Signs Temp Pulse Pulse Resp BP BP Pulse Ox 06/10/20 09:07 95 06/10/20 08:35 97.8 F 105 H 16 137/78 95 06/10/20 06:49 98.9 F 113 H 20 127/64 96 06/10/20 05:20 110 H 20 111/68 97 06/10/20 04:16 117 H 20 138/75 97 06/10/20 03:18 120 H 06/10/20 03:09 117 H 06/10/20 02:40 97.8 F 117 H 22 164/90 99 Intake and Output 06/09/20 06/10/20 06/10/20 22:59 06:59 14:59 Other: Voiding Method Toilet # Voids 1 Weight 80.286 kg PHYSICAL EXAMINATION: GENERAL: The patient is alert and oriented x3, not in any acute distress. Well developed, well nourished. HEENT: Pupils are round and equally reacting to light. EOMI. No scleral icterus. No conjunctival pallor. Normocephalic, atraumatic. No pharyngeal erythema. No thyromegaly. CARDIOVASCULAR: S1 and S2 present. No murmurs, rubs, or gallops. PULMONARY: Chest is clear to auscultation, no wheezing or crackles. ABDOMEN: Soft, nontender, nondistended, normoactive bowel sounds. No palpable organomegaly. MUSCULOSKELETAL: No joint swelling or deformity. EXTREMITIES: No cyanosis, clubbing, or pedal edema. NEUROLOGICAL: Gross neurological examination did not reveal any focal deficits. SKIN: No rashes. Results CBC & Chem 7: 06/10/20 03:03 06/10/20 03:02 Labs: Abnormal Lab Results - Last 24 Hours (Table) 06/10/20 06/10/20 Range/Units 03:02 03:02 BUN 20 H (7-17) mg/dL Glucose 125 H (74-99) mg/dL Ferritin 6.8 L (10.0-291.0) ng/mL TSH 0.032 L (0.465-4.680) mIU/L Thrombosis Risk Factor Assmnt - Choose All That Apply Any of the Below Risk Factors Present?: Yes Each Factor Represents 1 point: Obesity (BMI >25) Other Risk Factors: No Thrombosis Risk Factor Assessment Total Risk Factor Score: 1 Thrombosis Risk Factor Assessment Level: Low Risk Assessment and Plan Plan: -Shortness of breath palpitations: Etiology is probably some heart abnormality because of which patient will be monitored overnight and this heart rhythm abnormality may be related to excess thyroid supplementation, dose of levothyroxine is being decreased. There is no dense of heart failure patient is not in asthma exacerbation -History of asthma without any acute exacerbation -Psoriatic arthritis -Hyperthyroidism: Elevated TSH, cutting down the dose of for levothyroxine. Patient had a history of Julia's thyroiditis. Patient also has history of Chiari mal formation -Depression -Anxiety disorder
--- NOTE | 2020-06-10 17:31 | ECHOF ---
Referral Reason:function, tachycardia MEASUREMENTS -------- HEIGHT: 157.5 cm WEIGHT: 80.3 kg BP: RVIDd: 2.5 cm (< 3.3) IVSd: 0.9 cm (0.6 - 1.1) LVIDd: 4.1 cm (3.9 - 5.3) LVPWd: 1.2 cm (0.6 - 1.1) IVSs: 1.2 cm LVIDs: 3.1 cm LVPWs: 1.6 cm LA Diam: 2.8 cm (2.7 - 3.8) LAESV Index (A-L): 23.71 ml/m Ao Diam: 2.3 cm (2.0 - 3.7) AV Cusp: 2.1 cm (1.5 - 2.6) LA Diam: 3.3 cm (2.7 - 3.8) MV EXCURSION: 18.069 mm (> 18.000) MV EF SLOPE: 69 mm/s (70 - 150) EPSS: 0.3 cm MV E Ken: 0.71 m/s MV DecT: 150 ms MV A Ken: 0.76 m/s MV E/A Ratio: 0.94 RAP: 5.00 mmHg RVSP: 14.87 mmHg FINDINGS -------- Sinus rhythm. This was a technically good study. LV size, wall thickness and systolic function are normal, with an EF greater than 55%. The left spencer tricular size is normal. The right ventricle is normal in size. The left atrial size is normal. Normal LA size by volume 22+/-6 ml/m2. The right atrial size is normal. The aortic valve is trileaflet, and appears structurally normal. No aortic stenosis or regurgitation. Mild mitral regurgitation is present. Mild tricuspid regurgitation present. Right ventricular systolic pressure is normal at < 35 mmHg. There is no pulmonic regurgitation present. The aortic root size is normal. There is no pericardial effusion. CONCLUSIONS -------- 1. LV size, wall thickness and systolic function are normal, with an EF greater than 55%. 2. The left ventricular size is normal. 3. The right ventricle is normal in size. 4. The left atrial size is normal. 5. Normal LA size by volume 22+/-6 ml/m2. 6. The right atrial size is normal. 7. Mild mitral regurgitation is present. 8. Mild tricuspid regurgitation present. 9. The aortic root size is normal. 10. There is no pericardial effusion. [employer]ARM[employer] DAIRY: Jojo Robertson RDCS
[2020-06-10] MEDS ORDERED: MELATONIN 5 MG TABLET PO PRN (20:14)
[2020-06-10] MEDS ORDERED: ATORVASTATIN 20 MG TAB PO SCH (21:00)
[2020-06-10] MEDS ORDERED: TOPIRAMATE 25 MG TAB PO SCH (21:00)
[2020-06-10] MEDS ORDERED: SERTRALINE 100 MG TAB PO SCH (21:00)
[2020-06-10] MEDS ORDERED: LEVOTHYROXINE 112 MCG TAB PO SCH (21:00)
[2020-06-10] MEDS ORDERED: MONTELUKAST 10 MG TAB PO SCH (21:00)
[2020-06-11] MEDS ORDERED: PANTOPRAZOLE 40 MG TABLET PO SCH (07:30)
[2020-06-11 07:48] LABS: African American GFR (CKD) >90 (>60 ml/min/1.73 sqM); Anion Gap 5 mmol/L; Blood Urea Nitrogen 16 mg/dL (7-17); Carbon Dioxide 24 mmol/L (22-30); Chloride 113 mmol/L (98-107); Cholesterol 207 mg/dL (<200); Glucose 101 mg/dL (74-99); HDL Cholesterol 62 mg/dL (40-60); LDL Cholesterol,Calculated 123 mg/dL (0-99); Non-African American GFR(CKD) >90 (>60 ml/min/1.73 sqM); Potassium 3.9 mmol/L (3.5-5.1); Sodium 142 mmol/L (137-145); Triglycerides 110 mg/dL (<150)
[2020-06-11] MEDS: METOPROLOL TARTRATE 25 MG TAB PO SCH (08:01)
[2020-06-11] MEDS ORDERED: ASPIRIN 81 MG PO SCH (09:00)
[2020-06-11] MEDS ORDERED: ASCORBIC ACID 500 MG TAB PO SCH (09:00)
[2020-06-11] MEDS ORDERED: ASPIRIN 325 MG TAB PO SCH (09:00)
--- NOTE | 2020-06-11 10:13 | PN ---
PROGRESS NOTE Mrs Orourke was seen by me yesterday with shortness of breath, chest pain, and tachycardia. Tachycardia occurred after she took 2 puffs of her inhaler and she was also on a dose of Synthroid 137 mcg. TSH was low. I recommended that we cut back the dose to 112 mcg. I am adding metoprolol tartrate 25 mg b.i.d. She has hyperlipidemia as well and she takes Lipitor 20 mg daily. I am recommending that she should be compliant with this. This morning she is asymptomatic. Vital signs stable. Heart rate is 74. S1-S2 heard normally. Lungs are clear. Abdomen and lower extremity exam looks unchanged. I am recommending she can be discharged on 112 mcg of Synthroid daily, 25 mg b.i.d. of metoprolol and decrease aspirin to 81 mg daily. I will see her in the office in one week and we will do a stress echo. I discussed my thoughts in detail with the patient. She can be discharged today. MMODL / IJN: [id number] /
--- NOTE | 2020-06-11 11:08 | P.PN ---
Subjective Progress Note Date: 06/11/20 Principal diagnosis: Shortness of breath patient is evaluated for cold with 19 pneumonia infection results are pending ALLERGIC asthma, in remission Sinus tachycardia cardiovascular workup is in progress History of psoriatic arthritis Hypothyroidism Panic episode 06/11/2020, patient seen eval examined during the rounds labs reviewed medications reviewed status was echocardiogram ejection fraction 55% no significant pathology noted, patient slightly short of breath however tachycardia resolved, denies any cough or wheezing, has been ambulating, oxygen saturation remained stable mid 90s, so far workup including chest x-ray computed tomography scan of the chest have been unremarkable, covid test is pending, from pulmonary standpoint patient is stable for discharge follow-up with Dr. DANNY Johnson as outpatient, a panic episode cannot be excluded recommend a trial of Xanax, follow-up on Covid testing patient to be updated per primary and by his primary trim machine adjuster This is a 64-year-old male came into the hospital with the ongoing shortness of breath and cough is started 1 days ago, patient was noted to be significantly difficult to tachycardic, she has a history of ALLERGIC asthma has been on Xolair, also has a history of psoriatic arthritis she underwent a chest x-ray as well as CTA to rule out PE negative for pulmonary embolism,, no active infiltrate or masslike lesion has been noted her covert testing is pending, she has been evaluated by cardiovascular services echocardiogram is pending, EKG changes unremarkable Objective - Vital Signs Vital signs: Vital Signs Temp 98.6 F 06/11/20 07:54 Pulse 88 06/11/20 07:54 Resp 16 06/11/20 02:49 BP 130/74 06/11/20 07:54 Pulse Ox 99 06/11/20 07:54 Intake & Output 06/10/20 06/11/20 06/11/20 18:59 06:59 18:59 Intake Total 1200 Balance 1200 Intake: Intake, IV Titration 1200 Amount Sodium Chloride 0.9% 1, 1200 000 ml @ 100 mls/hr IV . Q10H [facility] Rx#:[id number] Other: Voiding Method Toilet Toilet # Voids 1 2 - Exam - Constitutional General appearance: average body habitus, cooperative, disheveled - EENT Eyes: PERRLA Ears: bilateral: normal - Neck Neck: normal ROM Carotids: bilateral: upstroke normal - Respiratory Respiratory: bilateral: CTA - Cardiovascular Rhythm: regular Heart sounds: normal: S1, S2 - Gastrointestinal General gastrointestinal: normal bowel sounds - Musculoskeletal Musculoskeletal: gait normal, strength equal bilaterally - Psychiatric Psychiatric: A&O x's 3, appropriate affect, intact judgment & insight - Labs CBC & Chem 7: 06/10/20 03:03 06/11/20 07:11 Labs: Abnormal Lab Results - Last 24 Hours (Table) 06/10/20 06/11/20 Range/Units 03:02 07:11 Chloride 113 H (98-107) mmol/L Glucose 101 H (74-99) mg/dL Ferritin 6.8 L (10.0-291.0) ng/mL Cholesterol 207 H (<200) mg/dL LDL Cholesterol, Calc 123 H (0-99) mg/dL HDL Cholesterol 62 H (40-60) mg/dL Assessment and Plan Assessment: Shortness of breath patient is evaluated for cold with 19 pneumonia infection results are pending ALLERGIC asthma, in remission Sinus tachycardia cardiovascular workup is in progress History of psoriatic arthritis Hypothyroidism Panic episode Plan: Follow-up on covid 19 testing Bronchodilators as needed Follow-up on workup and evaluation by cardiovascular services Trial of Xanax may be helpful Time with Patient: Greater than 30
[2020-06-11 14:11] VITALS: BP 123/72; PULSE 75; RESP 14; TEMP 97.7
--- NOTE | 2020-06-11 15:22 | P.DS ---
Providers Date of admission: 06/10/20 05:37 Attending physician: Johanna Flores Consults: 06/10/20 05:36 Consult Physician Urgent Consulting Provider: Omi Kiran Consult Reason/Comments: tachycardia Do you want consulting provider notified?: Yes Primary care physician: Karin Madrid [facility] Course: 64-year-old male came into the hospital with the ongoing shortness of breath and cough is started 1 days ago, patient was noted to be significantly difficult to tachycardic, she has a history of ALLERGIC asthma has been on Xolair, also has a history of psoriatic arthritis she underwent a chest x-ray as well as CTA to rule out PE negative for pulmonary embolism,, no active infiltrate Covid testing is pending, she has been evaluated by cardiovascular services echocardiogram is pending, EKG changes unremarkable . Patient is found to have elevated TSH and normal T4. Dose of levothyroxine was decreased. Patient will be monitored overnight for any heart rhythm abnormalities. Patient doesn't have any wheezing at this time. Patient was also started on beta catalino at this time. Patient also complaining of some orthopnea and denied any paroxysmal nocturnal dyspnea no evidence of CHF at this time. 06/11/2020 patient doesn't have any tachycardic episodes at this time. Patient still complaining of somesubjective shortness of breath echocardiac exam is within normal workup is negative patient will be discharged today on metoprolol 25 twice a day. Dose of levothyroxine was cut down to 112 g by mouth. PHYSICAL EXAMINATION: GENERAL: The patient is alert and oriented x3, not in any acute distress. Well developed, well nourished. HEENT: Pupils are round and equally reacting to light. EOMI. No scleral icterus. No conjunctival pallor. Normocephalic, atraumatic. No pharyngeal erythema. No thyromegaly. CARDIOVASCULAR: S1 and S2 present. No murmurs, rubs, or gallops. PULMONARY: Chest is clear to auscultation, no wheezing or crackles. ABDOMEN: Soft, nontender, nondistended, normoactive bowel sounds. No palpable organomegaly. MUSCULOSKELETAL: No joint swelling or deformity. EXTREMITIES: No cyanosis, clubbing, or pedal edema. NEUROLOGICAL: Gross neurological examination did not reveal any focal deficits. SKIN: No rashes. Assessment and Plan Plan: -Shortness of breath palpitations: Etiology is probably some heart abnormality because of which patient will be monitored overnight and this heart rhythm abnormality may be related to excess thyroid supplementation, dose of levothyroxine is being decreased. There is no dense of heart failure orasthma exacerbation Ruled out heart failure -Ruled out E -History of asthma without any acute exacerbation -Psoriatic arthritis -Hyperthyroidism: Elevated TSH, cutting down the dose of for levothyroxine. Patient had a history of Julia's thyroiditis. Patient also has history of Chiari mal formation -Depression -Anxiety disorder Patient Condition at Discharge: Good Plan - Discharge Summary New Discharge Prescriptions: New Aspirin 81 mg PO DAILY #30 chew Metoprolol Tartrate [Lopressor] 25 mg PO BID #60 tab Levothyroxine Sodium [Synthroid] 112 mcg PO HS #30 tab ALPRAZolam [Xanax] 0.25 mg PO TID PRN 10 Days #20 tab PRN Reason: Anxiety Discontinued Levothyroxine Sodium [Synthroid] 137 mcg PO DAILY No Action Topiramate [Topamax] 25 mg PO HS Montelukast [Singulair] 10 mg PO HS Atorvastatin [Lipitor] 20 mg PO HS Melatonin 10 mg PO HS PRN PRN Reason: Insomnia Cholecalciferol [Vitamin D3 (25 Mcg = 1000 Iu)] 1,000 unit PO DAILY Ascorbic Acid [Vitamin C] 1,000 mg PO DAILY Omeprazole Magnesium [PriLOSEC OTC] 20 mg PO DAILY Sertraline HCl [Zoloft] 100 mg PO HS Discharge Medication List Montelukast [Singulair] 10 mg PO HS 08/27/18 [History] Topiramate [Topamax] 25 mg PO HS 08/27/18 [History] Ascorbic Acid [Vitamin C] 1,000 mg PO DAILY 06/10/20 [History] Atorvastatin [Lipitor] 20 mg PO HS 06/10/20 [History] Cholecalciferol [Vitamin D3 (25 Mcg = 1000 Iu)] 1,000 unit PO DAILY 06/10/20 [History] Melatonin 10 mg PO HS PRN 06/10/20 [History] Omeprazole Magnesium [PriLOSEC OTC] 20 mg PO DAILY 06/10/20 [History] Sertraline HCl [Zoloft] 100 mg PO HS 06/10/20 [History] ALPRAZolam [Xanax] 0.25 mg PO TID PRN 10 Days #20 tab 06/11/20 [Rx] Aspirin 81 mg PO DAILY #30 chew 06/11/20 [Rx] Levothyroxine Sodium [Synthroid] 112 mcg PO HS #30 tab 06/11/20 [Rx] Metoprolol Tartrate [Lopressor] 25 mg PO BID #60 tab 06/11/20 [Rx] Follow up Appointment(s)/Referral(s): Bry Johnson MD [STAFF PHYSICIAN] - 1 Week Karin Madrid DO [Primary Care Provider] - 3 Days Brenden Johnson MD [STAFF PHYSICIAN] - 1 Week Patient Instructions/Handouts: Bronchospasm (ED) Activity/Diet/Wound Care/Special Instructions: outpatient stress test activity as tolerated heart healthy gluten free diet Discharge Disposition: HOME SELF-CARE
== END 2020-06-11 15:44 | disposition home or self-care (01) ==
LOC: EC 02:34 → 3NCARDOBS 05:37 → 1SOBS 05:52
PROVIDERS: ADMIT Hospitalist; ATTEND Hospitalist
DX: R06.02 Shortness of breath (principal); R00.2 Palpitations; R00.0 Tachycardia, unspecified; J45.909 Unspecified asthma, uncomplicated; E05.90 Thyrotoxicosis, unspecified without thyrotoxic crisis or storm; Z20.828 Contact with and (suspected) exposure to other viral communicable diseases; E06.3 Autoimmune thyroiditis; E78.5 Hyperlipidemia, unspecified; F32.9 Major depressive disorder, single episode, unspecified; F41.9 Anxiety disorder, unspecified; K90.0 Celiac disease; L40.50 Arthropathic psoriasis, unspecified; Z79.890 Hormone replacement therapy; Z79.899 Other long term (current) drug therapy
CPT/HCPCS: 93005 ×2; 96361 ×3; 96374; 96375; 99285; 36415; 94640; 93306; 84439; 83880; 80061; 80053; 80048; 84443; 82728; 83615; 83735; 84484; 85025; 85610; 85730; 86140; 71046; 71275; G0378 ×2; U0003; J2060; J2930; Q9967

== ENCOUNTER → 2021-08-20 | Outpatient (CLI) | payer BC ==
--- NOTE | 2021-08-22 11:53 | MM ---
Reason for exam: screening (asymptomatic). Last mammogram was performed 1 year and 4 months ago. History: Family history of breast cancer in maternal grandmother, breast cancer in paternal grandmother, and breast cancer in maternal aunt at age 45. Physical Findings: A clinical breast exam by your physician is recommended on an annual basis and results should be correlated with mammographic findings. MG 3D Screening Mammo W/Cad Bilateral CC and MLO view(s) were taken. Prior study comparison: April 18, 2020, bilateral MG 3d screening mammo w/cad. January 15, 2019, bilateral MG 3d screening mammo w/cad. There are scattered fibroglandular densities. No significant changes when compared with prior studies. ASSESSMENT: Benign, BI-RAD 2 RECOMMENDATION: Routine screening mammogram of both breasts in 1 year.
== END | disposition home or self-care (01) ==
LOC: RADMAMWWP 15:07
PROVIDERS: ATTEND Family Medicine
DX: Z12.31 Encounter for screening mammogram for malignant neoplasm of breast (principal)
CPT/HCPCS: 77063; 77067

== ENCOUNTER → 2021-08-30 | Outpatient (CLI) | payer BC | END | disposition home or self-care (01) | LOC: LABWHC1 23:14 | PROVIDERS: ATTEND Emergency Medicine | DX: Z20.822 Contact with and (suspected) exposure to COVID-19 (principal) | CPT/HCPCS: 87635 ==

== ENCOUNTER → 2021-10-19 | Outpatient (CLI) | payer BC ==
--- NOTE | 2021-10-20 03:00 | MR ---
EXAMINATION TYPE: MR shoulder LT wo con DATE OF EXAM: 10/19/2021 COMPARISON: None HISTORY: Left shoulder pain for 4 months Multiplanar multiecho imaging of the left shoulder without contrast. FINDINGS: Subscapularis tendon is intact. Glenoid leonila appear intact. Biceps tendon is intact. There is no jose dence of a fracture. The supraspinatus tendon appears intact. There is no retraction. There is hypertrophic mild spurring and edema and fluid signal at the AC joint. There is minimal subacromial impingement. IMPRESSION: Mild spurring and edema at the AC joint with minimal subacromial impingement. No evidence of rotator cuff tear.
== END | disposition home or self-care (01) ==
LOC: RADMRIMAIN 19:53
PROVIDERS: ATTEND Orthopaedic Surgery
DX: M25.512 Pain in left shoulder (principal)

== ENCOUNTER → 2021-11-09 | Outpatient (CLI) | payer BC ==
[2021-11-09 22:21] LABS: Basophils # (A) 0.05 X 10*3/uL (0.00-0.10); Eosinophils # (A) 0.19 X 10*3/uL (0.04-0.35); Eosinophils % (A) 3.9 %; HCT 43.9 % (37.2-46.3); HGB 13.8 g/dL (12.0-15.0); Immature Grans, Automated 0.4 %; Lymphocytes # (A) 1.47 X 10*3/uL (0.90-5.00); Lymphocytes % (A) 30.1 %; MCH 27.7 pg (27.0-32.0); MCHC 31.4 g/dL (32.0-37.0); MCV 88.2 fL (80.0-97.0); Mean Platelet Volume 10.9 fL (9.5-12.2); Monocytes % (A) 10.2 %; NRBC Per 100 WBC 0 /100 WBCS (0.0-0.0); Neutrophils # (A) 2.66 X 10*3/uL (1.80-7.70); Neutrophils % (A) 54.4 %; Platelet Count 293 X 10*3/uL (140-440); RBC 4.98 X 10*6/uL (4.10-5.20); RDW 13.6 % (11.5-14.5); WBC 4.89 X 10*3/uL (4.50-10.00)
[2021-11-09 22:44] LABS: Anion Gap 12.9 mmol/L (10.00-18.00); Carbon Dioxide 21.3 mmol/L (20.0-27.5); Potassium 4.3 mmol/L (3.5-5.5)
== END | disposition home or self-care (01) ==
LOC: LABPAT 14:25
PROVIDERS: ATTEND Orthopaedic Surgery
DX: Z01.812 Encounter for preprocedural laboratory examination (principal); M75.42 Impingement syndrome of left shoulder
CPT/HCPCS: 36415; 80051; 85025; 93005

== ENCOUNTER → 2022-06-19 | Outpatient (CLI) | payer BC ==
--- NOTE | 2022-06-20 08:01 | MR ---
EXAMINATION TYPE: MR shoulder LT wo con DATE OF EXAM: 06/19/2022 COMPARISON: Prior MRI left shoulder October 19, 2021 HISTORY: Continued pain and decreased ROM S/P surgery. TECHNIQUE: Multiplanar, multisequence imaging of the left shoulder is performed without contrast. FINDINGS: Rotator Cuff: New artifact from surgical repair or screws in the superior lateral humeral head. Incre ased signal with slight thickening beginning near myotendinous junction extending through the distal supraspinatus tendon with surrounding fluid is more prominent from prior. Infraspinatus tendon remain s intact with increasing surrounding fluid. Subscapularis tendon remains intact. Rotator cuff muscle bulk is preserved. Acromioclavicular Joint: Moderate narrowing and capsular hypertrophy redemonstrated. Loss of underlyi ng fat plane again seen. Correlate for underlying impingement. Glenohumeral Joint: Some narrowing without significant spurring. Small glenohumeral joint effusion re demonstrated Labrum: The labrum appears grossly intact given limitation of non-arthrogram study. Biceps Tendon: The long head of biceps is in normal location within bicipital groove. Increased signa l and thickening in the biceps tendon near labral anchor involving intra-articular portion. Bone marrow signal: No focal abnormal marrow signal is appreciated. Other: No additional significant abnormality is appreciated. IMPRESSION: 1. Interval rotator cuff surgical repair. More prominent tendinosis of the distal supraspinatus tendo n. No significant retracted tear. 2. Redemonstration of AC joint arthropathy with suggestion of underlying impingement. Correlate clini jarett. 3. New tendinosis/partial tearing of the long head biceps tendon near the biceps anchor.
== END | disposition home or self-care (01) ==
LOC: RADMRIMAIN 18:56
PROVIDERS: ATTEND Orthopaedic Surgery
DX: M75.112 Incomplete rotator cuff tear or rupture of left shoulder, not specified as traumatic (principal); M19.012 Primary osteoarthritis, left shoulder

== ENCOUNTER → 2022-09-16 | Outpatient (CLI) | payer BC ==
--- NOTE | 2022-09-17 08:50 | MM ---
Reason for Exam: Screening (asymptomatic). Last screening mammogram was performed 12 month(s) ago. Patient History: Menarche at age 13. First Full-Term at age 28. Postmenopausal. Patient has history of breast feeding. Paternal grandmother had breast cancer. Maternal grandmother had breast cancer. Maternal aunt had breast cancer, age 45. Risk Values: Criss 5 year model risk: 1.4%. NCI Lifetime model risk: 10.1%. Prior Study Comparison: 01/15/2019 Bilateral Screening Mammogram, [facility]. 04/18/2020 Bilateral Screening Mammogram, [facility]. 08/20/2021 Bilateral Screening Mammogram, [facility]. Tissue Density: The breast tissue is heterogeneously dense. This may lower the sensitivity of mammography. Findings: Analyzed By CAD. There is no suspicious group of microcalcifications or new suspicious mass in either breast. Overall Assessment: Benign, BI-RAD 2 Management: Screening Mammogram of both breasts in 1 year. A clinical breast exam by your physician is recommended on an annual basis and results should be correlated with mammographic findings. Electronically signed and approved by: Zachery Alvarez D.O.
== END | disposition home or self-care (01) ==
LOC: RADMAMWWP 14:47
PROVIDERS: ATTEND Family Medicine
DX: Z12.31 Encounter for screening mammogram for malignant neoplasm of breast (principal); Z78.0 Asymptomatic menopausal state; Z80.3 Family history of malignant neoplasm of breast
CPT/HCPCS: 77063; 77067

== ENCOUNTER → 2023-10-07 | Outpatient (CLI) | payer BC ==
[2023-10-07 17:02] LABS: T4, Free (Free Thyroxine) 1.37 ng/dL (0.80-1.80)
--- NOTE | 2023-10-08 08:48 | MM ---
Reason for Exam: Screening (asymptomatic). Last mammogram was performed 1 year(s) and 1 month(s) ago. Patient History: Menarche at age 13. First Full-Term at age 28. Postmenopausal. Patient has history of breast feeding. Paternal grandmother had breast cancer. Maternal grandmother had breast cancer. Maternal aunt had breast cancer, age 45. Risk Values: Criss 5 year model risk: 1.4%. NCI Lifetime model risk: 9.9%. Prior Study Comparison: 04/18/2020 Bilateral Screening Mammogram, [facility]. 08/20/2021 Bilateral Screening Mammogram, [facility]. 09/16/2022 Bilateral MG 3D screening mammo w/cad, [facility]. Tissue Density: The breast tissue is heterogeneously dense. This may lower the sensitivity of mammography. Findings: Analyzed By CAD. Benign calcifications noted. There is no suspicious group of microcalcifications or new suspicious mass in either breast. Overall Assessment: Benign, BI-RAD 2 Management: Screening Mammogram of both breasts in 1 year. . Patient should continue monthly self-breast exams. A clinical breast exam by your physician is recommended on an annual basis. This exam should not preclude additional follow-up of suspicious palpable abnormalities. Note on Criss scores and lifetime risk: 1. A Criss score greater than 3% is considered moderate risk. If this is the case, consider specialist referral to assess eligibility for a risk reducing agent. 2. If overall lifetime risk for the development of breast cancer is 20% or higher, the patient may qualify for future screening with alternating mammogram and breast MRI. Electronically signed and approved by: Heri Deal M.D. Radiologis
== END | disposition home or self-care (01) ==
LOC: RADMAMWWP 10:54
PROVIDERS: ATTEND Family Medicine
DX: Z12.31 Encounter for screening mammogram for malignant neoplasm of breast (principal); Z78.0 Asymptomatic menopausal state; Z80.3 Family history of malignant neoplasm of breast
CPT/HCPCS: 77063; 77067; 84439; 84443

== ENCOUNTER → 2024-11-08 | Outpatient (CLI) | payer BC ==
--- NOTE | 2024-11-09 08:21 | MM ---
Reason for Exam: Screening (asymptomatic). Last mammogram was performed 1 year(s) and 1 month(s) ago. Patient History: Menarche at age 13. First Full-Term at age 28. Postmenopausal. Patient has history of breast feeding. Paternal grandmother had breast cancer. Maternal grandmother had breast cancer. Maternal aunt had breast cancer, age 45. Risk Values: Criss 5 year model risk: 1.5%. NCI Lifetime model risk: 9.7%. Prior Study Comparison: 08/20/2021 Bilateral Screening Mammogram, [facility]. 09/16/2022 Bilateral MG 3D screening mammo w/cad, [facility]. 10/07/2023 Bilateral MG 3D screening mammo w/cad, [facility]. Tissue Density: The breasts are heterogeneously dense, which may obscure small masses. Findings: Analyzed By CAD. There is no suspicious group of microcalcifications or new suspicious mass in either breast. Benign calcification. Overall Assessment: Benign, BI-RAD 2 Management: Screening Mammogram of both breasts in 1 year. . Patient should continue monthly self-breast exams. A clinical breast exam by your physician is recommended on an annual basis. This exam should not preclude additional follow-up of suspicious palpable abnormalities. Note on Criss scores and lifetime risk: 1. A Criss score greater than 3% is considered moderate risk. If this is the case, consider specialist referral to assess eligibility for a risk reducing agent. 2. If overall lifetime risk for the development of breast cancer is 20% or higher, the patient may qualify for future screening with alternating mammogram and breast MRI. [facility], , 11/09/2024 8:17 AM. Electronically signed and approved by: Heri Deal M.D. Radiologis
== END | disposition home or self-care (01) ==
LOC: RADMAMWWP 16:43
PROVIDERS: ATTEND Family Medicine
DX: Z12.31 Encounter for screening mammogram for malignant neoplasm of breast (principal); R92.333 Mammographic heterogeneous density, bilateral breasts; Z78.0 Asymptomatic menopausal state; Z80.3 Family history of malignant neoplasm of breast
CPT/HCPCS: 77063; 77067